=== PATIENT | female | born 1955 | race Caucasian/White ===

== ENCOUNTER → 2017-08-01 | Outpatient (CLI) | payer OTHER ==
[~2017-08-01] VITALS: Ht 160 cm; Wt 120.2 kg
[~2017-08-01] MED LIST: BENADRYL25 MG PO; CLARITIN,ALAVAR10 MG PO; FLAX SEED OIL1 EACH PO; GLUCOPHAGE500 MG PO; LIPITOR20 MG PO; MULTIPLE VITAM1 EAC1 PO; NEXIUM40 MG PO; SUDAFED PE PRE1 EAC2 PO; TYLENOL ARTHRI650 MG PO; VITAMIN C500 M6 PO; ZESTRIL10 MG PO
== END | disposition home or self-care (01) ==
LOC: AMB 11:13
PROVIDERS: Internal Medicine
DX: Z12.11 Encounter for screening for malignant neoplasm of colon (principal); R19.7 Diarrhea, unspecified; Z86.010 Personal history of colon polyps; K63.5 Polyp of colon; I10 Essential (primary) hypertension; K21.9 Gastro-esophageal reflux disease without esophagitis; E78.5 Hyperlipidemia, unspecified; E66.01 Morbid (severe) obesity due to excess calories; Z68.42 Body mass index [BMI] 45.0-49.9, adult; E11.9 Type 2 diabetes mellitus without complications; Z79.84 Long term (current) use of oral hypoglycemic drugs; Z80.0 Family history of malignant neoplasm of digestive organs; Z83.79 Family history of other diseases of the digestive system; Z83.42 Family history of familial hypercholesterolemia; Z82.49 Family history of ischemic heart disease and other diseases of the circulatory system; Z87.891 Personal history of nicotine dependence; Z88.2 Allergy status to sulfonamides
CPT/HCPCS: 82948; 88305; 93005